=== PATIENT | female | born 1940 | race Caucasian/White ===

== ENCOUNTER 2017-01-22 07:53 | Observation (INO) | payer MEDICARE, OTHER ==
[~2017-01-22] VITALS: Ht 160 cm; Wt 59.1 kg
[2017-01-22] VITALS (10 sets, daily range): BP systolic 95–152; BP diastolic 54–63; PULSE 30–96; RESP 14–23; O2SAT 95–100
[2017-01-22] MEDS ORDERED: CHOL200047 PO (08:33)
[2017-01-22] MEDS ORDERED: FELO10TA3 PO (08:33)
[2017-01-22] MEDS ORDERED: HYDR25TA4 PO (08:33)
[2017-01-22] MEDS ORDERED: LISI10TA PO (08:33)
[2017-01-22] MEDS ORDERED: CALC600T12 PO (08:33)
--- NOTE | 2017-01-22 08:56 | ED.REPORT ---
HPI-Chest Pain 40 and Over Date of Service Jan 22, 2017 ED Provider: Elvin Fischer DO Patient is a 76 year old female with a hx of HTN who presents to the ED complaining of intermittent palpitations. Associated symptoms include trouble sleeping secondary to palpitations. She denies chest pain, SOB, weakness, numbness, lightheadedness, or any other symptoms. She is a difficult historian. Pt reports she has an appointment with Dr. Grajeda at the end of the month for a "rapid heart rate condition that I just lived with for a long time." Her symptoms are exacerbated by stress. Pt reports increased stress lately. Nursing Notes Stated Complaint: RAPID HEART RATE Chief Complaint: Chest Pain Nursing Notes Reviewed: Yes Allergies: Coded Allergies: Penicillins (Verified Allergy, Unknown, 01/22/17) cephalexin (Verified Allergy, Unknown, 01/22/17) erythromycin base (Verified Allergy, Unknown, 01/22/17) shellfish derived (Verified Allergy, Unknown, 01/22/17) Pt. reports that healthcare workers told her to not eat shellfish d/t adverse reaction to IV iodine Uncoded Allergies: IV iodine (Allergy, Intermediate, Broke out in large hives, 01/22/17) Scheduled Calcium Carbonate (Calcium) 600 Mg Tablet 500 MG PO daily Felodipine ER (Felodipine ER) 10 Mg Tab.er.24h 10 MG PO DAILY Hydrochlorothiazide (Hydrochlorothiazide) 25 Mg Tablet 25 MG PO DAILY Lisinopril (Lisinopril) 10 Mg Tablet 10 MG PO DAILY Miscellaneous Medications Cholecalciferol (Vitamin D3) (Vitamin D3) 2,000 Unit Capsule 2,000 UNIT PO General Time Seen by MD: 08:17 Chief Complaint Other (Palpitations ) Hx Obtained From: Patient Arrived By: Walk-in Sudden in Onset?: No Onset Occurred: Onset unknown Symptom Duration: Intermittent Severity: Current: No pain currently Severity: Maximum: No pain Similar Sx Previous: Yes Risk Factors )( CAD Risk Stratification HypertensionNo Diabetes mellitus, No Hyperlipidemia, No Known CAD, No Smoking Risk factors reviewed )( TAD Risk Stratification HypertensionNo Risk factors reviewed )( PE Risk Stratification No , No , No Previous DVT, No Previous PE Risk factors reviewed Past Medical History Past Medical History HTN Past Surgical History Reports: Appendectomy, , Hysterectomy, Tonsillectomy Smoking History Former Smoker Ambulatory Status Independent Review of Systems Respiratory: Denies: Shortness of breath Cardiovascular: Reports: Palpitations, Denies: Chest pain Neurologic: Denies: Lightheaded, Numbness, Weakness Complete sys rev & neg: except as marked. Physical Exam Initial Vital Signs Vital Signs (First) Date Time Temp Pulse Resp B/P Pulse Ox O2 Delivery O2 Flow Rate FiO2 01/22/17 07:58 36.6 92 14 152/54 99 Room Air Initial VS: Reviewed, Vital signs abnormal Head / Eyes: Atraumatic, Normocephalic Neck: Full range of motion Skin: Warm, Dry Neurologic: Alert, Oriented, Nonfocal Psychiatric: Mood/affect normal, Behavior normal, Normal thought content General/Constitutional: Awake, Alert, No acute distress Respiratory / Chest: Breath sounds NL, Breath sounds = bilat, No respiratory distress Cardiovascular: Heart rate NL Heart Rate / Rhythm: Positive: Irregular rhythm Abdomen: Atraumatic, Soft Interpretation & Diagnostics Lab Results Interpretation Result Diagram: 01/22/17 0820 01/22/17 0820 Test 01/22/17 08:20 01/22/17 09:45 White Blood Count 6.3th/mm3 (3.8-10.1) Red Blood Count 5.10mil/mm3 (3.90-5.20) Hemoglobin 15.6g/dL (12.0-15.6) Hematocrit 45.9% (35.0-46.0) Mean Corpuscular Volume 90.0fL (81-100) Mean Corpuscular Hemoglobin 30.6pg (27.0-35.0) Mean Corpuscular Hemoglobin Concent 34.0% (32.0-37.0) Red Cell Distribution Width 13.9% (12.3-15.4) Platelet Count 187bil/L (150-400) Neutrophils (%) (Auto) 39.7% (40-74) Lymphocytes (%) (Auto) 46.3% (14-46) Monocytes (%) (Auto) 10.3% (4-12) Eosinophils (%) (Auto) 2.9% (0-5) Basophils (%) (Auto) 0.6% (0-3) D-Dimer < 0.50mg/L FEU (<0.50) Sodium Level 139mEq/L (134-144) Potassium Level 3.6mEq/L (3.5-5.2) Chloride Level 100mEq/L (97-108) Carbon Dioxide Level 21mmol/L (18-29) Blood Urea Nitrogen 21mg/dL (8-27) Creatinine 0.79mg/dL (0.57-1.00) Estimat Glomerular Filtration Rate 102mL/min (>59) Glucose Level 197mg/dL (60-99) Calcium Level 10.0mg/dL (8.5-10.1) Magnesium Level 1.8mg/dL (1.6-2.6) Total Bilirubin 0.6mg/dL (0.0-1.2) Aspartate Amino Transf (AST/SGOT) 23U/L (0-50) Alanine Aminotransferase (ALT/SGPT) 13U/L (0-32) Alkaline Phosphatase 66U/L (25-165) Troponin T 0.010ug/L (0.0-0.011) Total Protein 7.9g/dL (6.4-8.4) Albumin 4.3g/dL (3.4-5.0) Hold [place] Top Tube Received (Received) Urine Color Straw (YELLOW) Urine Appearance Hazy (CLEAR,HAZY) Urine pH 7.0 (5.0-8.0) Urine Specific [place] 1.010 (1.003-1.035) Urine Protein Negativemg/dL (NEG,TRACE) Urine Glucose (UA) Negativemg/dL (NEGATIVE) Urine Ketones Negativemg/dL (NEGATIVE) Urine Occult Blood Trace (NEGATIVE) Urine Nitrite Negative (NEGATIVE) Urine Bilirubin Negative (NEGATIVE) Urine Urobilinogen Normalmg/dL (NORMAL) Urine Leukocyte Esterase Moderate (NEGATIVE) Urine RBC 0-2/hpf (0-2) Urine WBC 6-10/hpf (0-5) Urine Epithelial Cells Occasional/hpf (NONE-MOD) Urine Crystals None seen (NONE SEEN) Urine Bacteria Few/hpf (NONE-FEW) Urine Hyaline Casts None/lpf (NONE) Urine Granular Casts None seen (NONE SEEN) Urine Waxy Casts None seen (NONE SEEN) Urine Red Blood Cell Casts None seen (NONE SEEN) Urine White Blood Cell Casts None seen (NONE SEEN) Urine Mucus None seen (None Seen) Urine Trichomonas None seen (NONE SEEN) Urine Yeast None (NONE SEEN) Urinalysis Comment None Urine Culture Reflexed Indicated Hold Urine Received (Received) ECG Interpretation ECG Interpretation: Sinus rate 87 Ventricular bigeminy Probable left atrial enlargment Time: 08:15 Interpreted by: ED physician X-Ray Chest Interpretation Chest Xray Interpretation: IMPRESSION: No acute disease Dictated by: Beka Roman M.D. on 01/22/2017 at 8:56 Approved by: Beka Roman M.D. on 01/22/2017 at 8:58 View: Portable, 1 view Interpretation / Wet Read by: Interpret - Radiologist Re-Eval/Medical Decision Med Decision/Clinical Course Polymorphic nonsustained ventricular tachycardia found on the director of content marketing while in the ER. We will plan to admit the patient. Aspirin and metoprolol given. Cardiology consulted. Time of Eval: 09:49 Re-Evaluation/Progress Note: Discussed plan for admission. Patient understands and agrees with plan. All questions addressed at this time. Consultation #1: Referral / Consult Name: Shawn Puentes MD Consulted With: Cardiology Call Returned at: 10:11 Note: Discussed pt's case. Order Echo. Agrees to consult. Consultation #2: Referral / Consult Name: Robson Connolly DO Consulted With: Hospitalist Call Returned at: 10:54 Distribution Systems Superintendent: Will see patient, Agrees with eval, Agrees with plan, Accepts admit Note: Discussed pt's case. Accepts admit. Counseled Regarding: Diagnosis, Lab results, Need for admission Discharge & Departure Primary Impression: Non-sustained ventricular tachycardia Disposition: ADMITTED TO HOSPITAL Discharge Condition All VS Reviewed: Yes Condition: Stable Referrals: Chantel Cisneros (PCP) Barry Attestation Portions of this note were transcribed by Enedina Almaguer. I, Dr. Fischer personally performed the history, physical exam and medical decision-making; I reviewed and confirmed the accuracy of the information in the transcribed note. Signed by: Barry Ibrahim, 01/22/17 copies to: Chantel Cisneros Timothy S DO Jan 22, 2017 08:56 ENEDINA ALMAGUER Jan 22, 2017 09:11
[2017-01-22 09:14] LABS: BASOPHILS % (AUTO) 0.6 % (0-3); EOSINOPHILS % (AUTO) 2.9 % (0-5); MONOCYTES % (AUTO) 10.3 % (4-12); Mean Corpuscular Hemoglobin 30.6 pg (27.0-35.0); NEUTROPHILS % (AUTO) 39.7 % (40-74); Platelet Count 187 bil/L (150-400)
[2017-01-22 09:25] LABS: TROPONIN T 0.01 ug/L (0.0-0.011)
[2017-01-22 09:36] LABS: Magnesium 1.8 mg/dL (1.6-2.6)
--- NOTE | 2017-01-22 09:59 | DRSVH ---
PROCEDURE: X-RAY CHEST ONE VIEW, PORTABLE ([id number]) INDICATIONS: palpitations TECHNIQUE: One view of the chest was acquired. COMPARISON: None. FINDINGS: Surgical changes and devices: None. Lungs and pleura: No pleural effusions or pneumothorax. Lungs are clear. Mild scattered scarring/at electasis Mediastinum: Mediastinal contours appear normal. Heart size is normal. Bones and chest wall: No suspicious bony lesions. Overlying soft tissues appear unremarkable. Mild lateral curvature of the spine and diffuse discogenic changes. IMPRESSION: No acute disease Dictated by: Beka Roman M.D. on 01/22/2017 at 8:56 Approved by: Beka Roman M.D. on 01/22/2017 at 8:58
[2017-01-22] MEDS ORDERED: Ondansetron 2 mg/mL 2 mL Inj IVPUSH PRN (11:00)
[2017-01-22] MEDS ORDERED: Polyethylene Glycol (PEG) 17 Gm Powder PO PRN (11:00)
[2017-01-22] MEDS ORDERED: Alum-Mag Hydrox-Simeth 30 mL Suspension PO PRN (11:00)
[2017-01-22 11:06] LABS: APPEARANCE,URINE HAZY (CLEAR,HAZY); COLOR,URINE STRAW (YELLOW); OCCULT BLOOD,URINE TRACE (NEGATIVE); UROBILINOGEN,URINE NORMAL (NORMAL)
--- NOTE | 2017-01-22 12:56 | PCM.HPMED ---
Subjective Date of Service Jan 22, 2017 Primary Provider: Admitting Physician: Ab Holder MD Primary Care Physician: Chantel Cisneros Attending Physician: Ab Holder MD Chief Complaint: Heart palpitation History of Present Illness: Patient is a 76-year-old female from home presents with "fluttery". Patient carrier medical history significant only for long-standing hypertension. Per patient, she states significant palpitation since last night, restless, unable to sleep, thus sought medical care. She states this has happened before , almost once daily, however each episode lasting only brief minutes (<5min) since she was a child. No change in frequency, patient denies any associated symptoms of chest pain, shortness of breath, lightheadedness, dizziness, nausea , or vomiting. She further denies any syncopal episode. 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 She is overall very active, gardening, mowing her own lawn. Onset does not correlate with any physical activity. Patient had an event monitoring in November 2016. No reports however. She is to schedule with accountant bookkeeper Dr. Garibay for further assessments. In the ED, patient vitals remained stable, temperature 36.6, pulse 92, respiratory rate 14, blood pressure 152/54, pulse oximetry 99% on room air. EKG showed sinus rhythm with ventricular bigeminy. Radiology has been consulted and agreed to see patient with recommendation of a stat echocardiogram. Review of Systems: A comprehensive review of systems was conducted with the patient and found to be negative except as above in the History of Present Illness. Allergies Coded Allergies: Penicillins (Verified Allergy, Unknown, 01/22/17) cephalexin (Verified Allergy, Unknown, 01/22/17) erythromycin base (Verified Allergy, Unknown, 01/22/17) shellfish derived (Verified Allergy, Unknown, 01/22/17) Pt. reports that healthcare workers told her to not eat shellfish d/t adverse reaction to IV iodine Uncoded Allergies: IV iodine (Allergy, Intermediate, Broke out in large hives, 01/22/17) Home Medications Calcium carbonate 500 mg daily Vitamin D3 2000 units daily Felodipine ER 10 mg by mouth daily Hydrochlorothiazide 25 mg daily Lisinopril 10 mg daily PMH Essential hypertension Surgical History Tonsillectomy Appendectomy Hysterectomy section Family History Mother from multiple disease processes Father from CHF/smoking Social History Occupation: retired Hx Alcohol Use: No Hx Substance Use: No Smoking Status: Former Smoker (25-30 years smoking history) Exam Vital Signs Vital Sign - Last Date Time Temp Pulse Resp B/P Pulse Ox O2 Delivery O2 Flow Rate FiO2 01/22/17 12:14 65 23 122/56 95 Room Air 01/22/17 07:58 36.6 Exam General: No acute distress, appropriately interactive HEENT: Normocephalic, atraumatic. PERRLA, EOMI, Anicteric sclerae, moist conjunctivae. Neck: No JVD, No bruits. No lymphadenopathy or thyromegaly. Cardiovascular: Irregular rhythm, regular rate, no murmurs, rubs or gallops. Pulmonary: b/l air sound with no crackles, wheezes, or rhonchi. no use of accessory muscles. Abdomen: +Bowel sound, Soft, nontender, nondistended. Extremities: No clubbing or cyanosis, no lymphedema, no b/l lower leg edema Skin: Normal temperature, turgor, and texture; no rash. No visualized skin ulcer. Neurological: CN II-VII grossly intact, moving equally on all 4 extremities, reflexes normal Psychiatric: Normal mood and affect. AOx3 Lab and Diagnostics Result Diagram: 01/22/1781901/22/17819 Assessment & Plan Patient is a 76-year-old female with medical history significant only for long- standing hypertension admitted on observation for heart palpitation with underlining bradycardia and bigemini. Palpitation, present on admission, active -Symptomatic nonsustained ventricular tachycardia on EKG and tracer. -Electrolytes all within normal limits, troponins negative 1, lipid panel, TSH are pending -Cont aspirin 81mg, ASA 324mg and metoprolol 25mg given in ED -Stat echocardiogram for any structural abnormality -Cardiology consultation Dr. Puentes -Telemetry monitoring Essential hypertension -Diagnosed in her 40s -UA without proteins -Restart home dose felodipine, hydrochlorothiazide, lisinopril Hyperglycemia -Blood glucose 190 -A1c pending DVT prophylaxis heparin CODE STATUS: DO NOT RESUSCITATE. Okay to intubate Patient Status: Patient is admitted under observation status with expected length of stay LESS than 2 midnights due to severity of presenting symptoms, risk of adverse event, and complexity of treatment plan. VTE Prophylaxis: Sub-Q Heparin (Unfractionated) Resuscitation Status: Limited Interventions (DO NOT RESUSCITATE, okay to intubate) Time spent 65 minutes Attending Statement I interviewed and examined the patient at the time of admission. No tachyarrhythmia observed, but trigeminal and trigeminal cardiac rhythm suggests cardiac etiology. I agree with the assessment and plan as stated above. Robson Connolly DO Jan 22, 2017 12:56 Ab Holder MD Jan 22, 2017 14:22
[2017-01-22] MEDS ORDERED: FELODIPINE 10 MG PO SCH (13:00)
--- NOTE | 2017-01-22 13:42 | NUR ---
Admit to PCC/Bradycardia Pt admitted to PCC room 2028, report received from ED RN Clemencia Tamayo RN. Pt is an observation pt who was experiencing 3 beat runs of Vtach in ED with reported chest palpitations. She had been administered 25mg Metoprolol and Aspirin in ED. Vitals stable. Pt was transported by gurney and transferred independently to her room bed. Pt is alert, oriented, able to make needs known, and compliant with all cares. Pt's daughter at bedside. Upon assessment, pt's HR was found to be 30. technical publications writer was contacted to verify. Pt baseline HR is 30 with bigeminal ectopy that reads on monitor as HR of 60. MD notified, EKG ordered. Pt unsystematic.
--- NOTE | 2017-01-22 14:43 | NUR ---
Case Management: NATHAN explained and given to pt. Lorraine BURLESONRN
--- NOTE | 2017-01-22 16:57 | DRSVH ---
[facility] [address] [place] [address] Echocardiogram Report Name: MARCELA STEPHENSON Date : 01/22/2017 Height: 63 in Hospital Exam Location: [facility] Weight: 12 8 lb Gender: Female BSA: 1.6 m2 : 1940 Age: 76 yrs BP: 128/54 mmHg Reason For Study: NONSUSTAINED VENTRICULAR TACHYCARDIA Ordering Physician: HOSPITALIST [facility] Performed By: Nila William Referring Physician: AMY Cisneros Interpretation Summary The left ventricle is moderately dilated. Trabeculae near apex are visualized. No thrombus is observed. Left ventricular ejection fraction is estimated to be 40%. The left atrium is severely dilated. The right atrium is moderately dilated. The interatrial septum bows toward right atrium consistent with elevated left atrial pressure. The atrial septum is aneurysmal. There is mild to moderate mitral regurgitation. Procedure: A two-dimensional transthoracic echocardiogram with color flow and Doppler was performed. The study quality was technically adequate. There is no prior echocardiogram noted for this patient. The patient was in normal sinus rhythm during the exam. The patient had frequent PVCs during the exam. Left Ventricle: The left ventricle is moderately dilated. There is normal left ventricular wall thickness. Trabeculae near apex are visualized. No thrombus is observed. Left ventricular ejection fraction is estimated to be 40%. There are no focal wall motion abnormalities. Assessment of diastolic parameters suggests a pseudonormalization pattern, consistent with elevated filling pressures. Right Ventricle: The right ventricle is normal in size and function. Atria: The left atrium is severely dilated. The right atrium is moderately dilated. The interatrial septum bows toward right atrium consistent with elevated left atrial pressure. The atrial septum is aneurysmal. Mitral Valve: The mitral valve leaflets appear thickened, but open well. The mitral valve leaflets are mildly calcified. There is mild to moderate mitral regurgitation. Aortic Valve: The aortic valve is normal in structure and function. No aortic regurgitation is present. Tricuspid Valve: The tricuspid valve is normal in structure but is abnormal in function. There is mild tricuspid regurgitation. The right ventricular systolic pressure is estimated at 46 mmHg assuming a right atrial pressure of 3 mm Hg. Pulmonic Valve: The pulmonic valve leaflets are thin and pliable; valve motion is normal. There is mild pulmonic regurgitation. Great Vessels: The aortic root is normal size. The ascending aorta is normal in size. The aortic arch could not be visualized. The IVC is of normal diameter and collapses greater than 50% with a sniff. This suggests a low right atrial pressure of 3 mm Hg. Pericardium/ Pleura There is no pericardial effusion. There is no pleural effusion. MMode/2D Measurements & Calculations LVIDd: 5.7 cm RA long axis LVOT diam LVIDs: 4.7 cm LA A2 area: 31.7 cm FS: 17.2 % LA A4 area: 27.9 cm RA area AoV Opening EPSS: 1.4 cm LA length (vol): 6.0 cm IVSd: 0.73 cm LA vol: 124.0 ml : 21.8 cm Ao root diam LVPWd: 0.77 cm LA vol index RA vol : 65.8 ml Aortic Jxn RA IVC diam: 1.6 cm : 41.1 mm2 asc Aorta Diam: 2.7 cm LV sky. diameter/BSA LV sys. diameter/BSA RVD1 (basal) RVD2 (mid) (cm/m^2): 3.5 (cm/m^2): 2.9 : 2.7 cm Doppler Measurements & Calculations Ao V2 max MV E max chaz MV E/A: 1.3 TR max chaz : 194.9 cm/sec : 108.7 cm/sec Med Peak E' Chaz : 329.5 cm/sec Ao max PG MV A max chaz TR max PG : 15.2 mmHg : 80.6 cm/sec E/E' med: 28.3 : 43.4 mmHg Ao mean PG MV P1/2t: 48.6 msecLat Peak E' Chaz PA V2 max : 108.7 cm/sec LVOT Max Chaz MR ERO: 0.05 cm2 E/E' lat: 15.9 PA mean PG : 114.3 cm/sec E/e' average: 22.1 PA Accel Time TREVA(I,D): 1.5 cm : 0.15 sec sev ratio MV dec time MV P1/2t max chaz Ao V2 mean LV V1 max PG : 0.16 sec : 123.7 cm/sec MVA(P1/2t): 4.5 cm2Ao V2 VTI: 42.5 cm LV V1 VTI TREVA(V,D): 1.6 cm2 : 23.6 cm MR flow rate PA V2 mean TREVA indexed to BSA : 24.9 cm3/sec : 68.6 cm/sec (cm^2/m^2): 0.92 MR PISA radius Electronically signed by: Shawn Puentes on Reading Physician:01/22/2017 04:56 PM
[2017-01-22] MEDS: Heparin 5,000 Unit/mL Inj SUBQ SCH (17:03)
[2017-01-22] MEDS: Sodium Chloride LOK Flush 10 mL Syringe IVFLUSH SCH (17:03)
--- NOTE | 2017-01-22 17:28 | PCM.CHPCAR ---
Consult Subjective Date of service Jan 22, 2017 Date of admit Jan 22, 2017 at 11:23 Provider Requesting Consult Primary Care Physician Primary Care Physician: Chantel Cisneros Chief Complaint Fluttering in her chest History of Present Illness This is a 76 year old woman who presented to the ED with c/o fluttering in her chest. Significant past medical hx; HTN, anxiety. The patient is a very pleasant woman, who states having a long standing history of fluttering in her chest. The fluttering is always associated with periods of stress and anxiety. There is no associated shortness of breath, chest pain, weakness, dizziness, nausea, vomiting, dizziness, LOC, cough or wheezing. The patient reports having a very stressful period in life right now, with multiple family members ill. The patient is able to find relief from her anxiety when she is able to take walks, listen to music, and get away. However, it has been difficult for the patient to get away from her stress and anxiety lately. She has noticed more fluttering lately as her stress and anxiety have been more frequent. She is a very active woman, who does house work, yard work and gardening. In the ED, her ECG showed SR with ventricular bigeminy. Her electrolytes were within normal limits, troponins were negative, and vitals were stable; HR 65, B /P 122/56, 02 sat 95%. Echo demonstrated an EF of 40% with severe left atrial dilation and mild to moderate mitral regurgitation. . Review of Systems Review of Systems ROS General: No significant weight change. No fever, chills. Good appetite HEENT: No recent change in vision, hearing. No vertigo. No nasal discharge. No difficulty swallowing, or aspiration. Resp: Not experiencing shortness of breath. No cough, wheezing, dyspnea. CV: No chest pain, discomfort. Positive for palpitations. No, lightheadedness , syncopal episodes. No edema. No claudication. No ascites. GI: No; dyspepsia, nausea, vomiting, abdominal discomfort, constipation, diarrhea. : No urinary symptoms. No hematuria. MS: No muscle pain, joint pain, cramping. Neuro: No hx of stroke. No numbness, weakness, slurred speech, dizziness, confusion. Psych: No depression, anxiety. Normal affect Integ: No rash or skin lesions. No recent skin problems. Heme: No hx of anemia, easy bruising, bleeding disorders. PMH Past Medical History HTN Anxiety . Scheduled Calcium Carbonate (Calcium) 600 Mg Tablet 500 MG PO daily (Reported) Felodipine ER (Felodipine ER) 10 Mg Tab.er.24h 10 MG PO DAILY (Reported) Hydrochlorothiazide (Hydrochlorothiazide) 25 Mg Tablet 25 MG PO DAILY (Reported ) Lisinopril (Lisinopril) 10 Mg Tablet 10 MG PO DAILY (Reported) Miscellaneous Medications Cholecalciferol (Vitamin D3) (Vitamin D3) 2,000 Unit Capsule 2,000 UNIT PO ( Reported) Current Inpatient Medications Current Medications Heparin Sodium (Porcine) 5,000 unit Q8 SUBQ Last administered on 01/22/17 17:03 ; Admin Dose 5,000 UNIT; Start 01/22/17 at 16:30 Sodium Chloride 10 ml Q8 IVFLUSH Last administered on 01/22/17 17:03; Admin Dose 10 ML; Start 01/22/17 at 16:30 Al Hydrox/Mg Hydrox/Simethicone 30 ml Q6H PRN PO; Start 01/22/17 at 11:00 Ondansetron HCl 4 to 8 mg Q4H PRN IVPUSH; Start 01/22/17 at 11:00 Senna 17.2 mg BID PRN PO; Start 01/22/17 at 11:00 Polyethylene Glycol 17 gm DAILY PRN PO; Start 01/22/17 at 11:00 Hydrochlorothiazide 25 mg DAILY PO; Start 01/22/17 at 13:00; Stop 01/22/17 at 13 :03; Status DC Lisinopril 10 mg DAILY PO; Start 01/22/17 at 13:00; Stop 01/22/17 at 13:02; Status DC Non-Formulary Medication 10 mg DAILY PO; Start 01/22/17 at 13:00; Stop 01/22/17 at 13:02; Status DC Hydrochlorothiazide 25 mg DAILY PO; Start 01/23/17 at 08:30 Lisinopril 10 mg DAILY PO; Start 01/23/17 at 08:30 Felodipine 10 mg DAILY PO; Start 01/23/17 at 08:30 Aspirin 81 mg DAILY PO; Start 01/23/17 at 08:30 Allergies: Coded Allergies: Penicillins (Verified Allergy, Unknown, 01/22/17) cephalexin (Verified Allergy, Unknown, 01/22/17) erythromycin base (Verified Allergy, Unknown, 01/22/17) shellfish derived (Verified Allergy, Unknown, 01/22/17) Pt. reports that healthcare workers told her to not eat shellfish d/t adverse reaction to IV iodine Uncoded Allergies: IV iodine (Allergy, Intermediate, Broke out in large hives, 01/22/17) Family History Family History Mother from multiple disease processes Father from CHF/smoking Social History Occupation: retired Hx Alcohol Use: NoHx Substance Use: No Smoking Status: Former Smoker (25-30 years smoking history) Additional Information She lives at home with her daughter, and is very active at home with house work and yard work. Exam Vital Signs Vital Sign - Last Date Time Temp Pulse Resp B/P Pulse Ox O2 Delivery O2 Flow Rate FiO2 01/22/17 12:56 36.8 30 23 104/54 96 Room Air Objective General: No acute distress, well-developed, well-nourished Head: Normocephalic, atraumatic. External ears without defect. Eyes: Pupils equal, round, and reactive to light and accommodation. Anicteric sclerae, moist conjunctivae. Neck: Normal range of motion, no lymphadenopathy noted Cardiovascular: SR with bigeminy. No murmurs, rubs, or gallops appreciated Pulmonary: Clear to auscultation bilaterally with no crackles, wheezes, or rhonchi. Normal respiratory effort with no use of accessory muscles. Abdomen: Bowel sounds present in all 4 quadrants. Soft, nontender, nondistended. Extremities: No clubbing, cyanosis, edema Skin: Normal temperature, turgor, and texture; no rash, ulcers, or subcutaneous nodules appreciated. Neurological: Cranial nerves grossly intact. Reflexes, coordination, and sensory function within normal limits. Normal muscle strength, tone, and bulk. Psychiatric: Normal affect. Appropriate mentation. Alert and oriented to person , place, and time . Lab and Diagnostics Result Diagram: 01/22/1781901/22/17819 Assessment & Plan Assessment Couplets and triplets likely associated with her periods of stress and anxiety. No ominous arrhythmias. . VTE Prophylaxis: Sub-Q Heparin (Unfractionated) Plan: - Echo and stress test prior to D/C. - Continue HTZ and ACEI - Consider switching felodipine to a BB. . Resuscitation Status: Limited Interventions (DO NOT RESUSCITATE, okay to intubate) Time spent 42 minutes. This patient was seen and discussed with Dr. Puentes. . Attending Statement Continue monitoring overnight, will need an ECO and Nuclear stress test for evaluation of cardiac fx as well as to r/o underlying CAD Aislinn Klein Jan 22, 2017 17:28 Shawn Puentes MD Jan 23, 2017 12:03
[2017-01-23] MEDS: Heparin 5,000 Unit/mL Inj SUBQ SCH ×3 (00:55→17:19)
[2017-01-23] MEDS: Sodium Chloride LOK Flush 10 mL Syringe IVFLUSH SCH ×3 (00:59→17:19)
[2017-01-23 03:30] VITALS: BP 121/68; PULSE 36; RESP 16; O2SAT 96
--- NOTE | 2017-01-23 05:40 | NUR ---
Rest/rate Pt. a/o, denies pain or discomfort. States "Feeling well". Rested for extended period with eyes closed, wakes easily to gentle stimuli. VSS. Heart rate continues to be bradycardic (35-40) with bigeminal rhythm indicating a rate in the 60's. Denies any symptoms, or palpitations.
[2017-01-23] MEDS ORDERED: Felodipine 5 mg ER24 Tablet PO SCH (08:30)
--- NOTE | 2017-01-23 09:22 | PCM.PNCARD ---
Subjective Date of service Jan 23, 2017 Chief Complaint Fluttering in her chest History of Present Illness This is a 76 year old woman who presented to the ED with c/o fluttering in her chest. Significant past medical hx; HTN, anxiety. The patient is a very pleasant woman, who states having a long standing history of fluttering in her chest. The fluttering is always associated with periods of stress and anxiety. There is no associated shortness of breath, chest pain, weakness, dizziness, nausea, vomiting, dizziness, LOC, cough or wheezing. The patient reports having a very stressful period in life right now, with multiple family members ill. The patient is able to find relief from her anxiety when she is able to take walks, listen to music, and get away. However, it has been difficult for the patient to get away from her stress and anxiety lately. She has noticed more fluttering lately as her stress and anxiety have been more frequent. She is a very active woman, who does house work, yard work and gardening. In the ED, her ECG showed SR with ventricular bigeminy. Her electrolytes were within normal limits, troponins were negative, and vitals were stable; HR 65, B /P 122/56, 02 sat 95%. Echo demonstrated an EF of 40% with severe left atrial dilation and mild to moderate mitral regurgitation. . Subjective: Pt alert, laying in bed. Pleasant. No events over night. Continued bigeminy and trigeminy as seen on tele through the night. No ominous rhythms. Pt reports not sleeping well, and wanting to go home. Stress test today. NPO at this time. Additional Information: Denies any dizziness, vision changes, shortness of breath, chest pain, chest tightness, headache, nausea, vomiting, weakness . Exam Vital Signs Vital Sign - Last Date Time Temp Pulse Resp B/P Pulse Ox O2 Delivery O2 Flow Rate FiO2 01/23/17 03:30 36.5 36 16 121/68 96 01/22/17 22:59 Room Air Intake and Output 01/22/17 01/22/17 01/23/17 Cumulative From/Thru 15:00 23:00 07:00 01/22/17 07:58 - 01/23/17 05:24 Intake Total 400 ml 300 ml 700 ml Output Total 200 ml 400 ml 600 ml Balance 200 ml -100 ml 100 ml Intake Oral 400 ml 300 ml 700 ml Output Urine Total 200 ml 400 ml 600 ml # Voids 1 2 3 Additional Information: General: No acute distress, well-developed, well-nourished Head: Normocephalic, atraumatic. External ears without defect. Eyes: Pupils equal, round, and reactive to light and accommodation. Anicteric sclerae, moist conjunctivae. Neck: Normal range of motion, no lymphadenopathy noted Cardiovascular: SR with bigeminy. No murmurs, rubs, or gallops appreciated Pulmonary: Clear to auscultation bilaterally with no crackles, wheezes, or rhonchi. Diminished breath sounds in bases. Normal respiratory effort with no use of accessory muscles. Abdomen: Bowel sounds present in all 4 quadrants. Soft, nontender, nondistended. Extremities: No clubbing, cyanosis, edema Skin: Normal temperature, turgor, and texture; no rash, ulcers, or subcutaneous nodules appreciated. Neurological: Cranial nerves grossly intact. Reflexes, coordination, and sensory function within normal limits. Normal muscle strength, tone, and bulk. Psychiatric: Normal affect. Appropriate mentation. Alert and oriented to person , place, and time . Lab and Diagnostics Result Diagram: 01/22/17 0820 01/23/17 0400 Assessment & Plan Assessment Couplets and triplets associated with periods of stress and anxiety. Problems: Plan - Stress test today - Evidence of LV dysfunction on echo, may need angio. Will wait for results of stress test. - D/C CCB. Will start BB; carvedilol 3.125 BID VTE Prophylaxis: Sub-Q Heparin (Unfractionated) Resuscitation Status: Limited Interventions Time spent 27 minutes. Patient seen and discussed with Dr. Puentes. Aislinn Klein Jan 23, 2017 09:21
[2017-01-23 09:40] VITALS: BP 137/76; PULSE 58; RESP 18; O2SAT 98
[2017-01-23 10:19] VITALS: PULSE 55
--- NOTE | 2017-01-23 11:29 | PCM.PNMED ---
Subjective Date of Service Jan 23, 2017 Subjective Pt 76-year-old female with long history of hypertension presented with palpitation, found to have cardiomyopathy with EF 40%, severely left atrium. Patient without new complaints today, no denies any palpitation, lightheadedness , dizziness, no chest pain or shortness of breath. Telemetry note sinus bradycardiac rates in the 40s overnight, asymptomatic. Exam Vital Signs Vital Sign - Last Date Time Temp Pulse Resp B/P Pulse Ox O2 Delivery O2 Flow Rate FiO2 01/23/17 10:19 55 01/23/17 09:40 36.6 18 137/76 98 Room Air Intake and Output 01/22/17 01/22/17 01/23/17 Cumulative From/Thru 15:00 23:00 07:00 01/22/17 07:58 - 01/23/17 05:24 Intake Total 400 ml 300 ml 700 ml Output Total 200 ml 400 ml 600 ml Balance 200 ml -100 ml 100 ml Intake Oral 400 ml 300 ml 700 ml Output Urine Total 200 ml 400 ml 600 ml # Voids 1 2 3 Exam General: No acute distress, appropriately interactive HEENT: Normocephalic, atraumatic. PERRLA, EOMI, Anicteric sclerae, moist conjunctivae. Neck: No JVD, No bruits. No lymphadenopathy or thyromegaly. Cardiovascular: Irregular rhythm, regular rate, no murmurs, rubs or gallops. Pulmonary: b/l air sound with no crackles, wheezes, or rhonchi. no use of accessory muscles. Abdomen: +Bowel sound, Soft, nontender, nondistended. Extremities: No clubbing or cyanosis, no lymphedema, no b/l lower leg edema Skin: Normal temperature, turgor, and texture; no rash. No visualized skin ulcer. Neurological: CN II-VII grossly intact, moving equally on all 4 extremities, reflexes normal Psychiatric: Normal mood and affect. AOx3 Lab and Diagnostics Result Diagram: 01/22/17 0801/23/17 0400 Assessment & Plan Patient is a 76-year-old female with medical history significant only for long- standing hypertension admitted on observation for heart palpitation with underlining bradycardia and bigemini. Palpitation, present on admission, active -Symptomatic nonsustained ventricular tachycardia on EKG and tracer. -Electrolytes all within normal limits, troponins negative, TSH within normal limits -Cont aspirin 81mg, ASA 324mg and metoprolol 25mg given in ED -Cardiology consultation Dr. Puentes -Treadmill stress with nuclear scan today -Telemetry monitoring Cardiomyopathy -EF of 40% in addition to diastolic dysfunction -Likely secondary to long-standing hypertension -We will need beta joanne and BARBARA inhibitor in addition to statin Diabetes type II, [id number], new diagnosis, stable -A1c 6.7 -Order dietary consult -Insulin sliding scale -Recommend PCP follow-up, consider metformin Essential hypertension -Diagnosed in her 40s -UA without proteins -Restart home dose felodipine, hydrochlorothiazide, lisinopril Hyperglycemia -Blood glucose 190 -A1c pending DVT prophylaxis heparin CODE STATUS: Full code Disposition: Likely discharged tomorrow to home VTE Prophylaxis: Sub-Q Heparin (Unfractionated) Resuscitation Status: Limited Interventions Attending Statement The patient was seen and examined together with on January 23 and I agree with the history, exam findings, and plan as outlined in the note above. I did participate in all aspects of the services provided today, including documentation and the plan of care. The patient will complete her stress test today. Cardiology will follow up with the recommendations based on the results of the stress test. She continues to have sinus rhythm with occasional PVCs. Robson Connolly DO Jan 23, 2017 11:29 Twin Hunt MD Jan 24, 2017 15:22
[2017-01-23 11:52] VITALS: BP 126/64; PULSE 43; RESP 16; O2SAT 97
[2017-01-23] MEDS: Insulin LISPRO 300 Unit/3 mL Inj SUBQ SCH ×3 (12:00→21:26)
[2017-01-23] MEDS ORDERED: Glucose 40% Oral Gel 15 Gm Tube PO PRN (12:00)
--- NOTE | 2017-01-23 16:14 | NUR ---
Social Work: Initial Assessment/Multidisciplinary Rounds D: Per EMR review, pt is a 76 year old female admitted for Non-sustained VT. Pt is Medicare with [employer] supplement; pt states she has no LTC or VA benefits. PCP is LAISHA Sparks. NOK is Sunshine Donahue, dtr, . AD not completed- info provided. Readmit score is low 05/20. Pt discussed in Multidisciplinary rounds. Capacity for self care discussed; no concerns or needs at this time. PHYSICAL SECURITY MANAGER met with the patient at bedside. Social work/dcp role explained, contact information and discharge planning checklist provided. See initial assessment. Pt lives iwth her daughter in [facility] in a two story home with 8 steps to enter. The patient states that she is I with all ADLS, ambulation and self care. Patient uses walking sticks occasionally for community ambulation but is otherwise I. Patient drives and has never had HH or skilled rehab. She anticipates discharge back home when medically stable and states that she is receptive to d/c planning if needs arise. A: Pt who is I at baseline. P: Anticipate pt to discharge home via POV and no anticipated discharge needs; PHYSICAL SECURITY MANAGER to continue to follow to assess for unmet needs. MARISA Sneed Addendum: 01/23/17 at 1618 by ZARA VARGHESE SS Amended: Links added.
--- NOTE | 2017-01-23 16:47 | DRSVH ---
PROCEDURE: 1 DAY TREADMILL STRESS TEST Rest and exercise myocardial perfusion SPECT; gated images not acquired. RADIOPHARMACEUTICAL: 8.33 mCi Tc-99m tetrafosmin IV at rest and 24.2 mCi Tc-99m tetrafosmin IV at pea k exercise. [id number] was performed. INDICATIONS: 76 year-old female with new atrial flutter and congestive heart failure TECHNIQUE: Radiopharmaceutical was injected at peak stress test, and also at rest. SPECT images wer e obtained. SPECT myocardial perfusion images were displayed in short axis, horizontal long axis, an d vertical long axis views. Images were reviewed using [employer] software. COMPARISON: None. CARDIAC STRESS: A standard Francis treadmill exercise tolerance test was performed by the patient under the supervision of an attending staff. The patient exercised for 3 minutes and 15 seconds; functional aerobic impai rment (MAIA) is +28%. Hemodynamic data: There is normal blood pressure and heart rate response to exercise stress. Patien t achieved 90% of maximum predicted heart rate at peak exercise. Symptoms: Patient denied chest pain during exercise. EKG: There are 1-[address] segment depression in the inferior and lateral leads after exercise. Multip le premature ventricular contractions with bigeminy are present. FINDINGS: Raw data: There is good myocardial labeling by radiotracer. No significant motion artifacts. Left ventricle function: Gated images were unable to be obtained for evaluating wall motion and ejec tion fraction, due to irregular heart rate. Myocardial perfusion: There is a moderate sized region of decreased tracer uptake involving the apica l portion of the anterior wall, fixed between stress and resting images. Finding largely normalizes o n corresponding stress prone imaging. No reversible perfusion defects. Remainder of the left ventricl e myocardium demonstrates normal perfusion. IMPRESSION: 1. Normal myocardial perfusion study for ischemia. A fixed perfusion defect in the anterior apical wa ll normalizes on prone imaging, therefore most consistent with chest wall attenuation artifact rather than true pathology. 2. Expected hemodynamic response to exercise stress testing, with below average exercise capacity for age. PQRS ATTESTATIONS: Measure 322 - Is this imaging test primarily performed on a low-risk surgery patient for preoperative evaluation within 30 days preceding their low-risk non-cardiac surgery? Low-risk surgery is defined as cardiac or myocardial infarction less than 1%, including (but not limited to) endoscopic pr ocedures, superficial procedures, cataract surgery, and excisional breast surgery: Answer: No Measure 323 - Is this imaging test performed primarily for the monitoring of an asymptomatic patient who had percutaneous coronary intervention on the visit date or within 2 years of the visit date? An swer: No Measure 324 - Is this imaging test performed primarily for the initial detection and risk assessment on an asymptomatic, low coronary heart disease patient? Low CHD risk definition = clinicians should consider the maximum number of available patient factors used to estimate risk based on [employer] (A TP III criteria), typically age, gender, diabetes, smoking status, and use of blood pressure medicati on, and integrate age appropriate estimates for missing elements, such as LDL or standard blood press ure. Answer: No Dictated by: Elliot Streeter M.D. on 01/23/2017 at 16:37 Approved by: Elliot Streeter M.D. on 01/23/2017 at 16:45
[2017-01-23 17:01] VITALS: BP 111/67; PULSE 61; RESP 18; O2SAT 96
[2017-01-23 19:44] VITALS: BP 135/75; PULSE 55; RESP 18; O2SAT 95
[2017-01-24] VITALS (22 sets, daily range): BP systolic 113–153; BP diastolic 37–76; PULSE 43–68; RESP 12–20; O2SAT 92–98
[2017-01-24] MEDS: Sodium Chloride LOK Flush 10 mL Syringe IVFLUSH SCH ×4 (00:17→16:30)
[2017-01-24] MEDS: Heparin 5,000 Unit/mL Inj SUBQ SCH ×3 (00:18→16:30)
--- NOTE | 2017-01-24 05:56 | NUR ---
HR/BS Pt's HR was SB in the 50's with trigeminal PVC's. Pt's BS was 125 @ HS, no correctional given. Pt denied pain, VSS.
[2017-01-24] MEDS: Insulin LISPRO 300 Unit/3 mL Inj SUBQ SCH ×4 (08:00→22:00)
[2017-01-24] MEDS ORDERED: diphenhydrAMINE 25 mg Capsule PO ONE (10:25)
[2017-01-24] MEDS ORDERED: LORazepam 1 mg Tablet PO ONE (10:25)
--- NOTE | 2017-01-24 10:46 | PCM.PNCARD ---
Subjective Date of service Jan 24, 2017 Chief Complaint Fluttering in her chest History of Present Illness This is a 76 year old woman who presented to the ED with c/o fluttering in her chest. Significant past medical hx; HTN, anxiety. The patient is a very pleasant woman, who states having a long standing history of fluttering in her chest. The fluttering is always associated with periods of stress and anxiety. There is no associated shortness of breath, chest pain, weakness, dizziness, nausea, vomiting, dizziness, LOC, cough or wheezing. The patient reports having a very stressful period in life right now, with multiple family members ill. The patient is able to find relief from her anxiety when she is able to take walks, listen to music, and get away. However, it has been difficult for the patient to get away from her stress and anxiety lately. She has noticed more fluttering lately as her stress and anxiety have been more frequent. She is a very active woman, who does house work, yard work and gardening. In the ED, her ECG showed SR with ventricular bigeminy. Her electrolytes were within normal limits, troponins were negative, and vitals were stable; HR 65, B /P 122/56, 02 sat 95%. Echo demonstrated an EF of 40% with severe left atrial dilation and mild to moderate mitral regurgitation. Further hospital course has included admittance to the PCU for further cardiac workup and management. Her CCB was discontinued on 01-23-17, and she was started on a BB. A stress test was completed on 01-23-17 that demonstrated normal myocardial perfusion. Coronary aniography is being considered with subsequent PCI, to evaluate for cause of her LV dysfunction, and possibly treat underlying CAD. . Subjective: Pt is alert and awake, sitting up in bed. In no signs of distress, eating breakfast. She states that she feels better this morning, and is feeling more relaxed. She wasn't able to get much sleep due to nightmares frequently through the night. . Additional Information: Patient denies any of the following; headache, vision changes, dizziness, jaw pain, neck pain, back pain, weakness, chest pain, chest tightness, shortness of breath, nausea, vomiting, lightheadedness. Exam Vital Signs Vital Sign - Last Date Time Temp Pulse Resp B/P Pulse Ox O2 Delivery O2 Flow Rate FiO2 01/24/17 07:55 36.9 54 16 136/62 96 Room Air Intake and Output 01/23/17 01/23/17 01/24/17 Cumulative From/Thru 15:00 23:00 07:00 01/22/17 07:58 - 01/24/17 06:30 Intake Total 800 ml 650 ml 2150 ml Output Total 650 ml 1050 ml 2300 ml Balance 150 ml -400 ml -150 ml Intake Oral 800 ml 650 ml 2150 ml IV Total 0 ml 0 ml Output Urine Total 650 ml 1050 ml 2300 ml # Voids 3 Additional Information: General: No acute distress, well-developed, well-nourished Head: Normocephalic, atraumatic. External ears without defect. Eyes: Pupils equal, round, and reactive to light and accommodation. Anicteric sclerae, moist conjunctivae. Neck: Normal range of motion, no lymphadenopathy noted Cardiovascular: SR with bigeminy. No murmurs, rubs, or gallops appreciated Pulmonary: Clear to auscultation bilaterally with no crackles, wheezes, or rhonchi. Diminished breath sounds in bases. Normal respiratory effort with no use of accessory muscles. Abdomen: Bowel sounds present in all 4 quadrants. Soft, nontender, nondistended. Extremities: No clubbing, cyanosis, edema Skin: Normal temperature, turgor, and texture; no rash, ulcers, or subcutaneous nodules appreciated. Neurological: Cranial nerves grossly intact. Reflexes, coordination, and sensory function within normal limits. Normal muscle strength, tone, and bulk. Psychiatric: Normal affect. Appropriate mentation. Alert and oriented to person , place, and time Lab and Diagnostics Result Diagram: 01/22/17 0820 01/23/17 0400 12-lead ECG Review of telemetry from overnight showed sinus rhythm with frequent bigeminy Assessment & Plan Assessment Couplets and triplets associated with periods of stress and anxiety Cardiomyopathy with an EF of 40% LV dysfunction. . Problems: Plan Bigeminy - Loosening some overnight. - Continue with Carvedilol. - Continue tele monitoring. Cardiomyopathy - Continue with BB and ACEI - Decrease and reduce stress. Implement stress management and stress reduction techniques LV dysfunction - Nuclear Medicine Stress test ( 01-23-17) negative. - Plan for coronary angiogram this afternoon with possible PCI. Pre medicate with Benadryl and Ativan - The risks and benefits of a coronary angiogram with possible PCI have been discussed with the patient, as well as other treatment options. The patient wishes to proceed with the procedure, and accepts the risks. . VTE Prophylaxis: Sub-Q Heparin (Unfractionated) Resuscitation Status: Limited Interventions Time spent 35 minutes This patient has been examined and discussed with Dr. Puentes. . Attending Statement Pt. seen and d/w NICOLETTE, agree with plan Aislinn Townsend Jan 24, 2017 10:45 Shawn Puentes MD Jan 30, 2017 10:57
[2017-01-24] MEDS ORDERED: MethylprednisoLONE Sodium Succinate 62.5 mg/mL 2 mL Inj IVPUSH ONE (14:10)
[2017-01-24] MEDS ORDERED: Heparin 10,000 Unit/1,000 mL NS Premix IV ONE (14:48)
[2017-01-24] MEDS ORDERED: Heparin 1,000 Unit/mL 10 mL Inj ONE (14:48)
[2017-01-24] MEDS ORDERED: Heparin 1,000 Units/500 mL NS Premix IV ONE (14:48)
[2017-01-24] MEDS ORDERED: fentaNYL-PF 50 mCg/mL 2 mL Inj ONE (14:49)
[2017-01-24] MEDS ORDERED: Verapamil 2.5 mg/mL 2 mL Inj ONE (14:50)
[2017-01-24] MEDS ORDERED: 0.9% Sodium Chloride 50 ML ONE (14:50)
--- NOTE | 2017-01-24 14:56 | NUR ---
To cathlab pt ordered for cathlab procedure. contact lens technician informed of departure. sl piv x2. pt departed unit at 1438 via bed.
[2017-01-24] MEDS ORDERED: Atropine 1 mg/10 mL (Code) Syringe ONE (15:07)
--- NOTE | 2017-01-24 16:50 | CS94 ---
[address] [address] DIAGNOSTIC CARDIAC CATHETERIZATION PATIENT: MARCELA STEPHENSON : 1940 MR#: [id number] ADMIT: 01/22/2017 JOB ID: [id number] SERVICE DATE: 01/24/2017 PROCEDURE: Selective right and left coronary angiography, left heart catheterization. INDICATION: Cardiomyopathy. PROCEDURAL DETAILS: The procedure was done via right radial approach using a 5-Maltese system. Further details are enumerated in the procedure log to which the reader and the coders are referred. ANGIOGRAPHIC FINDINGS: 1. Left main normal. 2. LAD, no significant disease transapical. 3. Circumflex nondominant, free of any significant disease. 4. Right coronary artery is a moderate caliber, dominant vessel. It gives off a rather diminutive PDA. No critical stenosis is noted. 5. Left heart catheterization revealed an LVEDP of 10. There was no gradient upon pullback. There is significant LV dysfunction. LVEF is estimated to be around 30%. SUMMARY: In summary, this patient has severe LV dysfunction. She has nonischemic cardiomyopathy. She needs to be treated medically. She will be evaluated for AICD by Dr. Garcia over the ensuing few weeks.
--- NOTE | 2017-01-24 18:31 | PCM.PNMED ---
Subjective Date of Service Jan 24, 2017 Subjective Patient 76-year-old female with medical history significant for hypertension admitted for bradycardia with PVC. Overnight events, patient denies any new complaints today. Patient has been walking around the unit with good appetite, bowel movement. Telemetry report sinus bradycardia with frequent PVCs. Exam Vital Signs Vital Sign - Last Date Time Temp Pulse Resp B/P Pulse Ox O2 Delivery O2 Flow Rate FiO2 01/24/17 17:58 55 12 122/67 01/24/17 17:57 95 Room Air 01/24/17 17:00 2.00 01/24/17 11:41 37.1 Intake and Output 01/23/17 01/23/17 01/24/17 Cumulative From/Thru 15:00 23:00 07:00 01/22/17 07:58 - 01/24/17 06:30 Intake Total 800 ml 650 ml 2150 ml Output Total 650 ml 1050 ml 2300 ml Balance 150 ml -400 ml -150 ml Intake Oral 800 ml 650 ml 2150 ml IV Total 0 ml 0 ml Output Urine Total 650 ml 1050 ml 2300 ml # Voids 3 Exam General: No acute distress, appropriately interactive HEENT: Normocephalic, atraumatic. PERRLA, EOMI, Anicteric sclerae, moist conjunctivae. Neck: No JVD, No bruits. No lymphadenopathy or thyromegaly. Cardiovascular: Irregular rhythm, regular rate, no murmurs, rubs or gallops. Pulmonary: b/l air sound with no crackles, wheezes, or rhonchi. no use of accessory muscles. Abdomen: +Bowel sound, Soft, nontender, nondistended. Extremities: No clubbing or cyanosis, no lymphedema, no b/l lower leg edema Skin: Normal temperature, turgor, and texture; no rash. No visualized skin ulcer. Neurological: CN II-VII grossly intact, moving equally on all 4 extremities, reflexes normal Psychiatric: Normal mood and affect. AOx3 Lab and Diagnostics Result Diagram: 01/22/17 0820 01/23/17 0400 Assessment & Plan Patient is a 76-year-old female with medical history significant only for long- standing hypertension admitted for bradycardia, and have heart failure. Palpitation, present on admission, active -Symptomatic nonsustained bradycardia with PVCs -Unknown etiology -Electrolytes all within normal limits, troponins negative, TSH within normal limits -Treadmill stress with nuclear scan unremarkable right hip perfusion defect, low performance score -Cardiology consultation Dr. Puentes -Telemetry monitoring Cardiomyopathy -EF of 30% in addition to diastolic dysfunction -Unknown etiology -Catheterization without diseased vessels -We will need beta joanne and BARBARA inhibitor in addition to statin -Per cardiology- referral to Dr. Garcia for AICD Diabetes type II, [id number], new diagnosis, stable -A1c 6.7 -Order dietary consult -Insulin sliding scale -Recommend PCP follow-up, consider metformin Essential hypertension -Diagnosed in her 40s -UA without proteins -Restart home dose felodipine, hydrochlorothiazide, lisinopril Hyperglycemia -Blood glucose 190 -A1c pending DVT prophylaxis heparin CODE STATUS: Full code Disposition: Likely discharged tomorrow to home VTE Prophylaxis: Sub-Q Heparin (Unfractionated) Resuscitation Status: CPR: Attempt Resuscitation Attending Statement The patient was seen and examined together with on January 24 and I agree with the history, exam findings, and plan as outlined in the note above. I did participate in all aspects of the services provided today, including documentation and the plan of care. [The patient is going to undergo an angiogram later today to rule out coronary artery disease. She does have a chronic systolic heart failure which appears to be compensated at this time. Is unclear if this is ischemic or nonischemic. Robson Connolly DO Jan 24, 2017 18:31 Twin Hunt MD Jan 25, 2017 08:34
--- NOTE | 2017-01-24 18:41 | NUR ---
MICHA Patient to [facility] bed 9 at 1550 post heart cath/no intervention. Patient denies pain. Daughter and son at bedside. Taking sips PO. No bleeding or hematoma right wrist TR band. Band removal complete at 1800. Transferred back to room 2028 by bed at 1830. Report to receiving RN.
--- NOTE | 2017-01-24 19:23 | NUR ---
return to 2028 pt alert and oriented, calm, denies pain. TR band in place, deflated, for patient reminder not to use and move wrist. pt denies pain/discomfort. area soft. small bruising proximal to site. pt return to room at about 1835. telemetry replaced. monitoring coordinator informed. vss. blood sugar stable. dinner given. IVF for hydration. condition endorsed to zoltan rn.
[2017-01-25] MEDS: Sodium Chloride LOK Flush 10 mL Syringe IVFLUSH SCH ×4 (00:33→08:27)
[2017-01-25] MEDS: Heparin 5,000 Unit/mL Inj SUBQ SCH ×2 (00:34→08:24)
[2017-01-25 03:22] VITALS: BP 136/67; PULSE 42; RESP 16; O2SAT 97
[2017-01-25 05:21] VITALS: PULSE 59
--- NOTE | 2017-01-25 05:35 | NUR ---
ambulation/tele/no pain pt up for the first time, SBA tolerating well, pt denies any pain, reminded pt about precautions of right wrist s/p heart cath, tele SB rate 38-50s
[2017-01-25 07:51] VITALS: PULSE 83
[2017-01-25] MEDS: Insulin LISPRO 300 Unit/3 mL Inj SUBQ SCH (08:00)
[2017-01-25 08:31] VITALS: BP 142/66; PULSE 49; RESP 16; O2SAT 98
[2017-01-25] MEDS ORDERED: CARV3.122 PO (08:48)
[2017-01-25] MEDS ORDERED: LIP40 PO (08:48)
[2017-01-25] MEDS ORDERED: ASPI81TA3 PO (08:48)
[2017-01-25] MEDS ORDERED: ATOR20TA PO (08:50)
--- NOTE | 2017-01-25 08:56 | PCM.DIMED ---
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 Diet Discharge Diet: Heart Healthy Activity Discharge Activity: No restrictions Call your provider Call your provider for: Shortness of breath, Chest pain Patient Instructions Patient Instructions Your heart is functioning at half normal. You are at risk for sudden /arrhythmias. Please see Dr. Garcia for AICD evaluation Additionally, you should be followed up with Cardiology Dr. Garibay He can help you set an appt with Dr. Garcia You will need to call to confirm Additionally, I would like for you to follow PCP 1wk from hospital Please take you medications as instructed Follow-up with PCP in: 1 week Twin Hunt MD 01/25/17 1536: Discharge Instructions Attending's Statement The patient was seen and examined together with on January 25 and I agree with the history, exam findings, and plan as outlined in the note above. I did participate in all aspects of the services provided today, including documentation and the plan of care. She is going to be discharged home. She will have close follow-up with primary care doctor. She does have chronic systolic heart failure with an EF of between 35-40%. We Will Follow up with Electrophysiology to See Whether or Not They Believe She Would Be a Good Candidate for an ICD. Robson Connolly DO Jan 25, 2017 08:56 Twin Hunt MD Jan 25, 2017 15:36
--- NOTE | 2017-01-25 12:16 | NUR ---
Discharge Pt educated about new prescriptions. Pharmacy called to verify they had what she needed.Telemetry leads removed. IVs removed. Pt escorted down to vehicle with staff member and all personal belongings. Scripts given to patient.
--- NOTE | 2017-01-25 13:34 | NUR ---
Social Work: Discharge / Multidisciplinary Rounds Data: EMR reviewed. Patient is on day 3 of hospitalization for non-sustained VT per H&P. Patient was discussed in morning rounds. Patient has been deemed medically stable for discharge per MD. Patient will discharge home today. During rounds, no concerns were noted from staff or MD. Transportation will be provided via POV. Patient has no additional needs at this time. Assessment: Patient is medically stable for discharge today. Plan: Patient will discharge home today. Transportation will be provided via POV. Patient has no additional needs at this time. MARISA Kern
--- NOTE | 2017-01-25 16:37 | PCM.DC.MED ---
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 Trabeculae near apex are visualized. No thrombus is observed. Left ventricular ejection fraction is estimated to be 40%. The left atrium is severely dilated. The right atrium is moderately dilated. The interatrial septum bows toward right atrium consistent with elevated left atrial pressure. The atrial septum is aneurysmal. There is mild to moderate mitral regurgitation. Electronically signed by: Shawn Puentes on Other Diagnostics DIAGNOSTIC CARDIAC CATHETERIZATION ANGIOGRAPHIC FINDINGS: 1. Left main normal. 2. LAD, no significant disease transapical. 3. Circumflex nondominant, free of any significant disease. 4. Right coronary artery is a moderate caliber, dominant vessel. It gives off a rather diminutive PDA. No critical stenosis is noted. 5. Left heart catheterization revealed an LVEDP of 10. There was no gradient upon pullback. There is significant LV dysfunction. LVEF is estimated to be around 30%. SUMMARY: In summary, this patient has severe LV dysfunction. She has nonischemic cardiomyopathy. She needs to be treated medically. She will be evaluated for AICD by Dr. Garcia over the ensuing few weeks. Shawn Puentes MD 01/24/17 9693 Brief History This is a 76 year old woman who presented to the ED with c/o fluttering in her chest. Significant past medical hx; HTN, anxiety. The patient is a very pleasant woman, who states having a long standing history of fluttering in her chest. The fluttering is always associated with periods of stress and anxiety. There is no associated shortness of breath, chest pain, weakness, dizziness, nausea, vomiting, dizziness, LOC, cough or wheezing. The patient reports having a very stressful period in life right now, with multiple family members ill. The patient is able to find relief from her anxiety when she is able to take walks, listen to music, and get away. However, it has been difficult for the patient to get away from her stress and anxiety lately. She has noticed more fluttering lately as her stress and anxiety have been more frequent. She is a very active woman, who does house work, yard work and gardening. In the ED, her ECG showed SR with ventricular bigeminy. Her electrolytes were within normal limits, troponins were negative, and vitals were stable; HR 65, B /P 122/56, 02 sat 95%. Echo demonstrated an EF of 40% with severe left atrial dilation and mild to moderate mitral regurgitation. Further hospital course has included admittance to the PCU for further cardiac workup and management. Her CCB was discontinued on 01-23-17, and she was started on a BB. A stress test was completed on 01-23-17 that demonstrated normal myocardial perfusion. Coronary aniography is being considered with subsequent PCI, to evaluate for cause of her LV dysfunction, and possibly treat underlying CAD. . Hospital Course Patient is a 76-year-old female with medical history significant only for long- standing hypertension admitted for bradycardia, found to also have an ejection fraction of 30-40%. Cardiomyopathy -EF of 30% in addition to diastolic dysfunction -Unknown etiology -Catheterization without diseased vessels -Discharged home on carvedilol 3.25 twice a day, lisinopril 10 mg daily, atorvastatin 20 mg daily, and aspirin 81 mg daily -Per cardiology- referral to Dr. Garcia for AICD Palpitation, present on admission, active -Symptomatic nonsustained bradycardia with PVCs -Electrolytes all within normal limits, troponins negative, TSH within normal limits -No structural abnormality on echocardiogram nor significant coronary artery disease on treadmill stress test and catheterization -Etiology unknown at this juncture Diabetes type II, boe-wnoequr-vweubtzcg, new diagnosis, stable -A1c 6.7 -Order dietary consult -Insulin sliding scale -Recommend PCP follow-up, consider metformin Essential hypertension -Diagnosed in her 40s -UA without proteins -Restart home dose felodipine, hydrochlorothiazide, lisinopril Exam Vital Signs (Last) Date Time Temp Pulse Resp B/P Pulse Ox O2 Delivery O2 Flow Rate FiO2 01/25/17 08:31 36.4 49 16 142/66 98 Room Air 01/24/17 17:00 2.00 Exam General: No acute distress, appropriately interactive HEENT: Normocephalic, atraumatic. PERRLA, EOMI, Anicteric sclerae, moist conjunctivae. Neck: No JVD, No bruits. No lymphadenopathy or thyromegaly. Cardiovascular: Irregular in rate and rhythm, no, murmur or gallop noted Pulmonary: b/l air sound with no crackles, wheezes, or rhonchi. no use of accessory muscles. Abdomen: +Bowel sound, Soft, nontender, nondistended. Extremities: No clubbing or cyanosis, no lymphedema, no b/l lower leg edema Skin: Normal temperature, turgor, and texture; no rash. No visualized skin ulcer. Neurological: CN II-VII grossly intact, moving equally on all 4 extremities Psychiatric: Normal mood and affect. AOx3 Test 01/22/17 08:20 01/22/17 09:45 01/23/17 04:00 01/25/17 05:44 White Blood Count 6.3th/mm3 (3.8-10.1) Red Blood Count 5.10mil/mm3 (3.90-5.20) Hemoglobin 15.6g/dL (12.0-15.6) Hematocrit 45.9% (35.0-46.0) Mean Corpuscular Volume 90.0fL (81-100) Mean Corpuscular Hemoglobin 30.6pg (27.0-35.0) Mean Corpuscular Hemoglobin Concent 34.0% (32.0-37.0) Red Cell Distribution Width 13.9% (12.3-15.4) Platelet Count 187bil/L (150-400) Neutrophils (%) (Auto) 39.7% (40-74) Lymphocytes (%) (Auto) 46.3% (14-46) Monocytes (%) (Auto) 10.3% (4-12) Eosinophils (%) (Auto) 2.9% (0-5) Basophils (%) (Auto) 0.6% (0-3) D-Dimer < 0.50mg/L FEU (<0.50) Hemoglobin A1c 6.7% (4.8-5.6) Magnesium Level 1.8mg/dL (1.6-2.6) Total Bilirubin 0.6mg/dL (0.0-1.2) Aspartate Amino Transf (AST/SGOT) 23U/L (0-50) Alanine Aminotransferase (ALT/SGPT) 13U/L (0-32) Alkaline Phosphatase 66U/L (25-165) Total Protein 7.9g/dL (6.4-8.4) Albumin 4.3g/dL (3.4-5.0) Thyroid Stimulating Hormone (TSH) 2.240uIU/mL (0.450-4.500) Hold [place] Top Tube Received (Received) Urine Color Straw (YELLOW) Urine Appearance Hazy (CLEAR,HAZY) Urine pH 7.0 (5.0-8.0) Urine Specific Hanna 1.010 (1.003-1.035) Urine Protein Negativemg/dL (NEG,TRACE) Urine Glucose (UA) Negativemg/dL (NEGATIVE) Urine Ketones Negativemg/dL (NEGATIVE) Urine Occult Blood Trace (NEGATIVE) Urine Nitrite Negative (NEGATIVE) Urine Bilirubin Negative (NEGATIVE) Urine Urobilinogen Normalmg/dL (NORMAL) Urine Leukocyte Esterase Moderate (NEGATIVE) Urine RBC 0-2/hpf (0-2) Urine WBC 6-10/hpf (0-5) Urine Epithelial Cells Occasional/hpf (NONE-MOD) Urine Crystals None seen (NONE SEEN) Urine Bacteria Few/hpf (NONE-FEW) Urine Hyaline Casts None/lpf (NONE) Urine Granular Casts None seen (NONE SEEN) Urine Waxy Casts None seen (NONE SEEN) Urine Red Blood Cell Casts None seen (NONE SEEN) Urine White Blood Cell Casts None seen (NONE SEEN) Urine Mucus None seen (None Seen) Urine Trichomonas None seen (NONE SEEN) Urine Yeast None (NONE SEEN) Urinalysis Comment None Urine Culture Reflexed Indicated Hold Urine Received (Received) Troponin T 0.010ug/L (0.0-0.011) Triglycerides Level 51mg/dL (0-149) Cholesterol Level 171mg/dL (100-199) LDL Cholesterol, Calculated 106.800mg/dL (0-99) VLDL Cholesterol 10.200mg/dL HDL Cholesterol 54mg/dL (>39) Cholesterol/HDL Ratio 3.17 (0.0-4.4) Sodium Level 139mEq/L (134-144) Potassium Level 4.0mEq/L (3.5-5.2) Chloride Level 100mEq/L (97-108) Carbon Dioxide Level 21mmol/L (18-29) Blood Urea Nitrogen 24mg/dL (8-27) Creatinine 0.73mg/dL (0.57-1.00) Estimat Glomerular Filtration Rate 111mL/min (>59) Glucose Level 177mg/dL (60-99) Calcium Level 9.5mg/dL (8.5-10.1) Discharge Medications Discharge Medications Aspirin Chew (Aspirin Chew) 81 Mg Chew 81 MG PO DAILY Prescribed by: CRISS ZAMBRANO DO Atorvastatin (Lipitor) 20 Mg Tablet 20 MG PO DAILY Prescribed by: CRISS ZAMBRANO DO Calcium Carbonate (Calcium) 600 Mg Tablet 500 MG PO daily (Reported) Carvedilol (Carvedilol) 3.125 Mg Tablet 3.125 MG PO BIDWM Prescribed by: CRISS ZAMBRANO DO Hydrochlorothiazide (Hydrochlorothiazide) 25 Mg Tablet 25 MG PO DAILY (Reported ) Lisinopril (Lisinopril) 10 Mg Tablet 10 MG PO DAILY (Reported) Miscellaneous Medications Cholecalciferol (Vitamin D3) (Vitamin D3) 2,000 Unit Capsule 2,000 UNIT PO ( Reported) Additional med instructions Stop Lipitor and Call you doctor should you have increasing muscle aches/pain. Followup Plan Disposition: Home Discharge Diet: Heart Healthy Discharge Activity: No restrictions Patient Instructions Your heart is functioning at half normal. You are at risk for sudden /arrhythmias. Please see Dr. Garcia for AICD evaluation Additionally, you should be followed up with Cardiology Dr. Garibay He can help you set an appt with Dr. Garcia You will need to call to confirm Additionally, I would like for you to follow PCP 1wk from hospital Please take you medications as instructed Follow-up with PCP in: 1 week Time spent 45 min Attending Statement The patient was seen and examined together with on 15 and I agree with the history, exam findings, and plan as outlined in the note above. I did participate in all aspects of the services provided today, including documentation and the plan of care. The patient is stable for discharge with close cardiology follow up. copies to: Chantel Cisneros Phuc H DO Jan 25, 2017 16:37 Twin Hunt MD Jan 26, 2017 07:27
== END 2017-01-25 12:15 | disposition home or self-care (01) ==
LOC: SED 07:53 → PCC 11:23
PROVIDERS: ADMIT Internal Medicine; ATTEND Internal Medicine
DX: I49.3 Ventricular premature depolarization (principal); R00.1 Bradycardia, unspecified; I42.8 Other cardiomyopathies; R00.2 Palpitations; E11.9 Type 2 diabetes mellitus without complications; I10 Essential (primary) hypertension; I47.2 Ventricular tachycardia; Z88.8 Allergy status to other drugs, medicaments and biological substances; Z88.0 Allergy status to penicillin; Z91.013 Allergy to seafood; Z90.710 Acquired absence of both cervix and uterus; Z87.891 Personal history of nicotine dependence; Z66 Do not resuscitate
CPT/HCPCS: 36415; 71010; 78452; 80048; 80053; 80061; 81000; 83036; 83735; 84443; 84484; 85025; 85378; 87086; 93005; 93017; 93458; 96372; 96374; 96375; 99152; 99285; A9502; C1769; C1887; C8929; G0378; J0461; J1200; J1644; J1815; J2250; J2930; J3010; Q9967